=== PATIENT | male | born 1975 | race Caucasian/White ===

== ENCOUNTER 2023-01-07 07:00 | Outpatient (NON) | payer OTHER, SELFPAY | END 2023-01-07 07:01 | disposition home or self-care (01) | LOC: ANHLAB 01-09 12:24 | PROVIDERS: PCP Internal Medicine; Visit Provider Nurse Practitioner | DX: D48.5 Neoplasm of uncertain behavior of skin (principal) | CPT/HCPCS: 88305 ==

== ENCOUNTER 2023-01-30 00:40 | Day surgery (SDC) | payer OTHER, SELFPAY ==
[2023-01-24 15:42] VITALS: BMI 26.4
--- NOTE | 2023-01-28 09:15 | SUR.PREOP ---
Patient called regarding upcoming procedure. Message left on pt's voicemail regarding preop instructions, appointment times, and procedure prep.
--- NOTE | 2023-01-29 13:19 | PM.HPGS ---
History of Present Illness History of Present Illness Consent: Risks, benefits, and alternatives have been discussed and questions answered. Patient agrees to proceed with procedure. Chief complaint: GERD Narrative: Santi Hernandez is a 48 year old male who has had difficulty swallowing lately. He was placed on pantoprazole by his primary care provider.He actually has been doing better on pantoprazole. His symptoms are mostly with solid food. Review of Systems Review of Systems: All systems reviewed & are unremarkable except as noted in HPI and below PMFSH Social History Social History Smoking status: Never smoker Alcohol intake: current Substance use: never Substance use type: does not use Living arrangements: with family Spiritual care concerns: No Meds Home Medications and Allergies Home Medications Medication Instructions Recorded Confirmed Type pantoprazole 40 mg tablet,delayed 40 mg PO DAILY 01/24/23 01/30/23 History release sildenafil 50 mg tablet 50 mg PO PRN PRN Sexual Activity 01/24/23 01/30/23 History Allergies Allergy/AdvReac Type Severity Reaction Status Date / Time No Known Allergies Allergy Verified 01/30/23 07:04 Exam Const: General: alert Orientation/consciousness: patient oriented x3 Resp: Auscultation: clear to auscultation bilaterally Cardio: Rhythm: regular rhythm GI: GI Palp: Yes Soft to palpation and No Tenderness to palpation present (GI) Neuro: General: patient oriented x3 Assessment and Plan Assessment and plan (1) Dysphagia: Code(s): R13.10 - Dysphagia, unspecified Status: Acute Assessment and Plan: EGD with possible biopsy or dilatation or cautery.
[2023-01-30 07:06] VITALS: BP 107/67; PULSE 67; RESP 16; TEMP 35.8; O2SAT 100
[2023-01-30] MEDS: LACTATED RINGERS 1,000 ML 150 ML IV CONT (07:18)
--- NOTE | 2023-01-30 07:45 | P.PNAN_ITS ---
Anes - Initial Pre Proc Eval Procedure: Operation Date: 01/30/23 08:00 Proposed Procedures p Esophagogastroduodenoscopy - Brody Adorno MD Date/Time: 01/30/23 07:45 Surgeon: Brody Adorno MD Pre Op Diagnosis: GERD Patient Data Age: 48 Gender: M Height: 1.83 m Weight: 85.1 kg Last Vital Signs Temp 96.4 F L 01/30/23 07:06 Pulse 67 01/30/23 07:06 Resp 16 01/30/23 07:06 BP 107/67 01/30/23 07:06 Pulse Ox 100 01/30/23 07:06 O2 Del Method Room Air 01/30/23 07:06 Allergies Allergy/AdvReac Type Severity Reaction Status Date / Time No Known Allergies Allergy Verified 01/30/23 07:04 Home Medications Medication Instructions Recorded Confirmed Type pantoprazole 40 mg tablet,delayed 40 mg PO DAILY 01/24/23 01/30/23 History release sildenafil 50 mg tablet 50 mg PO PRN PRN Sexual Activity 01/24/23 01/30/23 History Patient hx anesthesia problems: none Family hx anesthesia problems: none Results Review: All pre-operative results and documents have been reviewed as part of the pre- operative evaluation. [facility], [facility] Social History Social History Smoking status: Never smoker Alcohol intake: current Substance use: never Substance use type: does not use Living arrangements: with family Spiritual care concerns: No Anes - Eval Final PreProcedure Day of Procedure 01/30/23 07:45 Patient weight: normal Heart: regular rate and rhythm Lungs: clear to auscultation Neurological: alert and oriented Last oral intake: >/= 8 hours Emergent: no Anesthetic plan: proceed Results Review: All pre-operative results and documents have been reviewed as part of the pre- operative evaluation. Informed Consent: The patient's anesthetic plan and its attendant risks and benefits were discussed with the patient/family/POA. Questions were solicited and answers provided to the satisfaction of the patient/family/POA.
[2023-01-30 08:01] VITALS: BP 97/66; PULSE 70; RESP 16; O2SAT 98
[2023-01-30 08:11] VITALS: BP 102/73; PULSE 76; RESP 16; O2SAT 97
[2023-01-30 08:21] VITALS: BP 115/82; PULSE 66; RESP 15; O2SAT 99
== END 2023-01-30 08:39 | disposition home or self-care (01) ==
PROVIDERS: PCP Internal Medicine; Visit Provider Internal Medicine Gastroenterology
PROC: 0DJ08ZZ Inspection of Upper Intestinal Tract, Via Natural or Artificial Opening Endoscopic (ICD-10-PCS; CPT 43235; principal; 2023-01-30 08:00)
DX: K22.2 Esophageal obstruction (principal); K44.9 Diaphragmatic hernia without obstruction or gangrene; K21.00 Gastro-esophageal reflux disease with esophagitis, without bleeding
CPT/HCPCS: 43249; 88305; C1726; J2704; J7120

== ENCOUNTER 2025-01-07 01:07 | Day surgery (SDC) | payer OTHER, SELFPAY ==
--- OUTSIDE RECORDS SUMMARY | 2022-02-27 06:37 | XMS_ITS | Continuity of Care Document ---
Author Organization [facility] Address [address] [place] [address] Phone Care Team Providers Care Stereoptic Projection Topographer Name Role Phone Agustin RÍOS MD, Kwame Unavailable Unavailable Advance Directives Directive Yes / No Effective Date File Name No Information Encounters Encounter Description Practice Location Reason(s) For Visit Diagnoses Date Provider Providers Copied on Encounter Orthopedic [employer] [facility], [address], [id number], [place] tel:[phone] [facility] No Information 3 Agustin Puente. [address] [facility], [facility] [address], [place], [place], [id number] , [place]. tel: [phone] Family History Family Member Type Diagnosis Age At Onset No Information Payers Payer name Insurance type Covered democrat ID Authoriza tion(s) No Information Social History Type Description Quantity Date Captured Comments Sex Male Smoking Status No Information Chief Complaint And Reason For Visit No Information Reason For Referral Reason For Referral No Information History Of Present Illness Encounter Date Complaint History Of Prese nt Illness No Information Functional Status Date Functional Assessmen t No Information Instructions Date Instruction Additional Infor mation No Information Assessments Type Assessment Date No Information Patient Care Teams Name Effective Dates (start - stop) Status Members No Information
--- OUTSIDE RECORDS SUMMARY | 2022-02-27 06:37 | XMS_ITS | Continuity of Care Document ---
Author Organization [facility] Address [address] [place] [address] Phone Care Team Providers Care Claim Manager Name Role Phone Agustin RÍOS MD, Kwame Unavailable Unavailable Advance Directives Directive Yes / No Effective Date File Name No Information Encounters Encounter Description Practice Location Reason(s) For Visit Diagnoses Date Provider Providers Copied on Encounter [facility], [address], [id number], [place] tel:[phone] [facility] No Information 3 Agustin Puente. [address] [facility], [facility] [address], [place], [place], [id number] , [place]. tel: [phone] Family History Family Member Type Diagnosis Age At Onset No Information Payers Payer name Insurance type Covered republican ID Authoriza tion(s) No Information Social History [...]
--- OUTSIDE RECORDS SUMMARY | 2022-02-27 06:37 | XMS_ITS | Continuity of Care Document ---
Author Organization [facility] Address [address] [place] [address] Phone Care Team Providers Care Curator Natural History Museum Name Role Phone Agustin RÍOS MD, Kwame Unavailable Unavailable Advance Directives Directive Yes / No Effective Date File Name No Information Encounters Encounter Description Practice Location Reason(s) For Visit Diagnoses Date Provider Providers Copied on Encounter [facility]opedic [facility], [address], [id number], [place] tel:[phone] [facility] No Information 3 Agustin Puente. [address] [facility], [facility] 100, [place], [place], [id number] , [place]. tel: [phone] Family History Family Member Type Diagnosis Age At Onset No Information Payers Payer name Insurance type Covered alliance party ID Authoriza tion(s) No Information Social History [...]
--- OUTSIDE RECORDS SUMMARY | 2022-02-27 06:37 | XMS_ITS | Continuity of Care Document ---
Author Organization [facility] Address [address] [place] [address] Phone Care Team Providers Care Applications Engineering Manager Name Role Phone Agustin RÍOS MD, Kwame Unavailable Unavailable Advance Directives Directive Yes / No Effective Date File Name No Information Encounters Encounter Description Practice Location Reason(s) For Visit Diagnoses Date Provider Providers Copied on Encounter [facility] [employer] [facility], [address], [id number], [place] tel:[phone] [facility] No Information 3 Agustin Puente. [address] [facility], [facility] 100, [place], [place], [id number] , [place]. tel: [phone] Family History Family Member Type Diagnosis Age At Onset No Information Payers Payer name Insurance type Covered constitution party ID Authoriza tion(s) No Information Social [...]
--- OUTSIDE RECORDS SUMMARY | 2022-02-27 06:37 | XMS_ITS | Continuity of Care Document ---
Author Organization [facility] Address [address] [facility] [address] [place] [address] Phone Care Team Providers Care Robotics Application Engineer Name Role Phone Agustin RÍOS MD, Kwame Unavailable Unavailable Advance Directives Directive Yes / No Effective Date File Name No Information Encounters Encounter Description Practice Location Reason(s) For Visit Diagnoses Date Provider Providers Copied on Encounter [facility]opedic [employer] [facility], [address], [id number], [place] tel:[phone] [facility] No Information [address] [facility], [facility] 100, [place], [place], [id number] , [place]. tel: [phone] Family History Family Member Type Diagnosis Age [...]
--- OUTSIDE RECORDS SUMMARY | 2022-02-27 06:37 | XMS_ITS | Continuity of Care Document ---
Author Organization [facility] Address [address] [facility] [address] [address] [place] [address] Phone Care Team Providers Care Powerhouse Electrician Name Role Phone Agustin RÍOS MD, Kwame Unavailable Unavailable Advance Directives Directive Yes / No Effective Date File Name No Information Encounters Encounter Description Practice Location Reason(s) For Visit Diagnoses Date Provider Providers Copied on Encounter Orthopedic [employer] [facility], [address], [id number], [place] tel:[phone] [facility] No Information 3 Agustin Puente. [address] [facility], [facility] 100, [place], [place], [id number] , [place]. tel: [phone] Family History Family Member Type Diagnosis Age [...]
--- OUTSIDE RECORDS SUMMARY | 2022-02-27 06:37 | XMS_ITS | Continuity of Care Document ---
Author Organization [facility] Address [address] [facility] [address] [place] [address] Phone Care Team Providers Care Supervising Bailiff Name Role Phone Agustin RÍOS MD, Kwame Unavailable Unavailable Advance Directives Directive Yes / No Effective Date File Name No Information Encounters Encounter Description Practice Location Reason(s) For Visit Diagnoses Date Provider Providers Copied on Encounter [facility], [address], [id number], [place] tel:[phone] [facility] No Information 3 Agustin Puente. [address] [facility], [facility] 100, [place], [place], [id number] , [place]. tel: [phone] Family History Family Member Type Diagnosis Age [...]
--- OUTSIDE RECORDS SUMMARY | 2022-02-27 06:37 | XMS_ITS | Continuity of Care Document ---
Author Organization [facility] Address [address] [facility] [address] [facility] [address] [place] [address] Phone Care Team Providers Care Booster Pump Oiler Name Role Phone Agustin RÍOS MD, Kwame Unavailable Unavailable Advance Directives Directive Yes / No Effective Date File Name No Information Encounters Encounter Description Practice Location Reason(s) For Visit Diagnoses Date Provider Providers Copied on Encounter Orthopedic [email or web address] [facility], [address], [id number], [place] tel:[phone] [facility] No Information 3 Agustin Puente. [address] [facility], [facility] 100, [place], [place], [id number] , [place]. tel: [phone] Family History Family Member Type Diagnosis Age [...]
--- OUTSIDE RECORDS SUMMARY | 2022-02-27 06:37 | XMS_ITS | Continuity of Care Document ---
Author Organization [facility] Address [address] [facility] [address] [place] [address] Phone Care Team Providers Care Dot Net Developer Name Role Phone Agustin RÍOS MD, Kwame Unavailable Unavailable Advance Directives Directive Yes / No Effective Date File Name No Information Encounters Encounter Description Practice Location Reason(s) For Visit Diagnoses Date Provider Providers Copied on Encounter Orthopedic [employer] [facility], [address], [id number], [place] tel:[phone] [facility] No Information [address] [facility], [facility] 100, [place], [place], [id number] , [place]. tel: [phone] Family History Family Member Type Diagnosis Age [...]
--- OUTSIDE RECORDS SUMMARY | 2022-02-27 06:37 | XMS_ITS | Continuity of Care Document ---
Author Organization [facility] Address [address] [facility] [address] [place] [address] Phone Care Team Providers Care Market Manager Name Role Phone Agustin RÍOS MD, Kwame Unavailable Unavailable Advance Directives Directive Yes / No Effective Date File Name No Information Encounters Encounter Description Practice Location Reason(s) For Visit Diagnoses Date Provider Providers Copied on Encounter Orthopedic [employer] [facility], [address], [id number], [place] tel:[phone] [facility] No Information 3 Agustin Puente. [address] [facility], [facility] 100, [place], [place], [id number] , [place]. tel: [phone] Family History Family Member Type Diagnosis Age At Onset No Information Payers Payer name Insurance type Covered libertarian ID Authoriza tion(s) No Information Social History [...]
--- OUTSIDE RECORDS SUMMARY | 2022-02-27 06:37 | XMS_ITS | Continuity of Care Document ---
Author Organization [facility] Address [address] [facility] [address] [place] [address] Phone Care Team Providers Care Water Supply Technician Name Role Phone Agustin RÍOS MD, Kwame Unavailable Unavailable Advance Directives Directive Yes / No Effective Date File Name No Information Encounters Encounter Description Practice Location Reason(s) For Visit Diagnoses Date Provider Providers Copied on Encounter Orthopedic [employer] [facility], [address], [id number], [place] tel:[phone] [facility] No Information 3 Agustin Puente. [address] [facility], [facility] 100, [place], [place], [id number] , [place]. tel: [phone] Family History Family Member Type Diagnosis Age [...]
--- OUTSIDE RECORDS SUMMARY | 2022-02-27 06:37 | XMS_ITS | Continuity of Care Document ---
Author Organization [facility] Address [address] [facility] [address] [place] [address] Phone Care Team Providers Care Cartridge Assembling Machine Adjuster Name Role Phone Agustin RÍOS MD, Kwame Unavailable Unavailable Advance Directives Directive Yes / No Effective Date File Name No Information Encounters Encounter Description Practice Location Reason(s) For Visit Diagnoses Date Provider Providers Copied on Encounter Orthopedic [employer] [facility], [address], [id number], [place] tel:[phone] [facility] No Information 3 Agustin Puente. [address] [facility], [facility] 100, [place], [place], [id number] , [place]. tel: [phone] Family History Family Member Type Diagnosis Age [...]
--- OUTSIDE RECORDS SUMMARY | 2022-02-27 06:37 | XMS_ITS | Continuity of Care Document ---
Author Organization [facility] Address [address] [facility] [address] [place] [address] Phone Care Team Providers Care Employee Benefits Attorney Name Role Phone Agustin RÍOS MD, Kwame Unavailable Unavailable Advance Directives Directive Yes / No Effective Date File Name No Information Encounters Encounter Description Practice Location Reason(s) For Visit Diagnoses Date Provider Providers Copied on Encounter Orthopedic [facility], [address], [id number], [place] tel:[phone] [facility] No Information 3 Agustin Puente. [address] [facility], [facility] 100, [place], [place], [id number] , [place]. tel: [phone] Family History Family Member Type Diagnosis Age [...]
[2024-12-31 13:23] VITALS: BMI 25.0
--- OUTSIDE RECORDS SUMMARY | 2025-01-07 02:06 | XMS_ITS | Data Portability ---
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 He reports minimal changes compared to his previous visit. He is still having significant mechanical symptoms on a daily basis of catching locking. He rates his pain as from a 2 up to 8/10. He did get an MRI and he is here to review that. MRI of the knee was reviewed, demonstrating a horizontal tear of the inferior surface of the medial meniscus posterior body He has tenderness palpation over the medial joint line. 1+ effusion. Range of motion 0-140, positive Néstor's, stable ligaments. Given his persistent mechanical symptoms and the MRI findings of a meniscal tear, I would recommend surgery for knee arthroscopy partial medial meniscectomy. Risks, benefits, and alternatives to surgery were discussed with the patient. Risks include but are not limited to pain, stiffness, infection, bleeding, blood clot, injury to other structures including nerves or blood vessels, need for future surgery, and anesthesia risks. We discussed the goal of surgery is to improve symptoms but there is no guarantee of improvement and it is possible the patient's condition is worse after surgery. Patient agreed and would like to proceed. Not available 03/02/2023 22:57:12 05/22/2023 05/22/2023 48-year-old male presents for follow-up of his right knee. He is meniscal symptoms that have failed conservative management. We are waiting for insurance approval to proceed with surgery. Reports his knee is hurting more, rated as 9 to 10/10. He has popping and pain with activities. He has remained full duty at work. He feels like this is making his problems worse. He has tenderness palpation over the medial joint line. 1+ effusion. Range of motion 0-140, positive Néstor's, stable ligaments. we will continue seeking approval for his surgery, given that he has mechanical meniscal symptoms that have failed conservative management. He reports that he has been working full duty, but his duties including climbing and kneeling, make his knee pain worse and also cause him significant mechanical symptoms. As such, we will update his work status to restrict him from climbing and kneeling. We will resubmit the authorization for his surgery. He is in agreement with the plan. Not available 05/22/2023 22:06:43 06/19/2023 06/19/2023 48-year-old male presents for follow-up of his right knee. He is meniscal symptoms that have failed conservative management. We were waiting for insurance approval to proceed with surgery. Reports his knee is hurting more, rated as 9 to 10/10. He has popping and pain with activities. He has been off work due to them not being able to accommodate his restrictions. He has tenderness palpation over the medial joint line. 1+ effusion. Range of motion 0-140, positive Néstor's, stable ligaments. He is scheduled for surgery later this month. We answered all questions he had about the surgery and post-op. Surgery details and risks were discussed with him at a prior appointment with Dr. Carroll. His work restrictions will stay the same until we see him back 2 weeks post-op for his first check up. He is in agreement with this plan. [email or web address] Not available 06/19/2023 09:41:01 07/24/2023 07/24/2023 48-year-old male presents for follow-up of his right knee status post arthroscopy partial medial meniscectomy on 07/09/2023. He reports feeling better, still having some stiffness, currently rates his pain as 7 to 8/10. Incisions are clean dry intact. Sutures removed and redressed with Steri-Strips. He has some soreness over the lateral joint line. Range of motion 0-130 At this point he is progressing as expected. He should continue to protect the incisions for another week or 2. He does not feel ready to return to work duties, so we will restrict him to light duty with no climbing lifting pushing or pulling. We will see him back in 2 weeks, anticipate at that time he would be ready to go. We discussed that is good that he no longer has the catching symptoms that he was having before, but the continued pain may be from the pre-existing wear and tear, especially the pain in the lateral part of the knee, as we did surgery on the medial meniscus. Not available 07/24/2023 11:05:24 08/07/2023 08/07/2023 48-year-old male presents for follow-up of his right knee status post arthroscopy and partial medial meniscectomy on 07/09/2023. He reports feeling good, overall no problems except he still has pain with kneeling. He has not had anymore catching or locking. Currently rates his pain as 3 to 5/10. Incisions well healed. He has some tenderness over the anterior knee over the patellar tendon. Range of motion 0-140, negative Néstor's, stable ligaments. At this point he has progressed well. With regards to the pain anteriorly, that may be from some scar tissue or some sensitivity around the incision sites. He should continue to desensitize, use a knee pad when kneeling. For his work status we will pace cement activities as tolerated, no kneeling for 2 more weeks, then full release. We also gave him a course of anti-inflammator ies and he should also use topical Voltaren as needed. Follow-up in 4 weeks for recheck if he has any issues.. Not available 08/07/2023 18:13:21 Plan of Treatment Reminders Order Date Submit Date Provider Last Modified By Organization Details Last Modified Time Details Appointments None recorded . Lab None recorded . Referral None recorded . Procedures None recorded . Surgeries None recorded . Imaging None recorded . Medication Orders Mobic 15 mg tablet 024 08/07/19 24 [facility] #[id number], [address] [place], [address], 4 16:53:06 Patient TargetsNo targets recorded. Patient InstructionsNo instructions recorded. Reason for Referral None Reported. Results Created Date Observation Date Name Description Value Unit Range Abnormal Flag Note LastModifiedBy Organization Detail LastModifiedTime 02/09/20 23 02/07/2023 MRI, knee, w/o contr ast No observ ation record ed. [email or web address] [facility] [address] [place], [address], 02/20/2023 13:59:55 05/31/19 24 MRI, knee, w/o contr ast No observ ation record ed. [email or web address] Not Available 05/19 11:35:37 Result Notes None recorded. Problems Name Problem SNOMED Code Status Onset Date Resolution Date Notes Provider Name and Address Organization Details Recorded Time Pain of right knee joint 4192590596431 00 Active 2022 Not Available [facility] 3 07:29:36 Low back pain 268453681 Active 2022 Not Available [facility] 3 07:29:36 Onychomyco sis of toenails 440917262 Active 2022 Not Available [facility] 3 07:29:36 Gastroesop hageal reflux disease 175812863 Active 2022 Not Available [facility] 3 07:29:35 Erectile dysfunctio n 305430787 Active 2022 Not Available [facility] 3 07:29:36 Tear of medial meniscus of knee 984225518 Active 2023 Jesus Carroll MD [address] [facility], [facility] [address], [place], [address] , [facility] 4 22:57:44 Problem Notes None recorded. Procedures Surgical History Date Name Laterality Status Provider Name and Address Organization Details Recorded Time 4 Knee Surgery completed DANE Vergara [facility] 07/30/2023 15:30:23 Imaging Results None recorded. Procedure Notes None recorded. Medical Equipment None Reported. Allergies No known drug allergies Medications Name Sig Start Date Stop Date Status Note LastModified by Organization Details LastModified Time sildenafil 50 mg tablet take 1 tablet 30mins before intercour se active Not Available Not Available No t Available hydrocodone 5 mg-acetamin ophen 325 mg tablet TAKE 1 TABLET BY MOUTH EVERY 6 HOURS active Not Available Not Available No t Available meloxicam 15 mg tablet TAKE 1 TABLET BY MOUTH EVERY DAY active Not Available Not Available No t Available terbinafine HCl 250 mg tablet Take 1 tablet every day by oral route. active Not Available Not Available No t Available pantoprazol e 40 mg tablet,diana yed release Take 1 tablet every day by oral route. active Not Available Not Available No t Available naproxen 500 mg tablet TAKE 1 TABLET (ORAL) EVERY 12 HOURS ( NEEDED FOR PAIN) FOR 5 DAYS 06/08 completed Not Available Not Available Not Available [employer] COVID-19 Ag Self Test kit TAKE DIRECTED IN PACKAGE 06/08 completed Not Available Not Available Not Available Vitals Date Recorded Body height Body mass index (BMI) Body weight Provider Name and Address Organization Details Last Updated DateTime 02/27/2023 182.88 cm 25.8 kg/m2 33187.55 g Leonora Forde Nancy [employer] [facility] 02/27/2023 15:16:09 Date Recorded Body height Body mass index (BMI) Body weight Pain severity - 0-10 verbal numeric rating [Score] - Reported Provider Name and Address Organization Details Last Updated DateTime 05/22/2023 182.88 cm 25.8 kg/m2 40565.55 g 9 DANE Vergara [employer] [facility] 05/22/2023 15:11:55 Date Recorded Body height Body mass index (BMI) Body weight Provider Name and Address Organization Details Last Updated DateTime 06/19/2023 182.88 cm 25.8 kg/m2 73878.55 g Nelli Powers CNA [facility] [facility] 06/19/2023 09:01:00 Date Recorded Body height Body mass index (BMI) Body weight Pain severity - 0-10 verbal numeric rating [Score] - Reported Provider Name and Address Organization Details Last Updated DateTime 07/24/2023 182.88 cm 25.8 kg/m2 74011.55 g 8 Leonora Forde Nancy [place] [facility] 07/24/2023 09:51:03 Date Recorded Body height Body mass index (BMI) Body weight Pain severity - 0-10 verbal numeric rating [Score] - Reported Provider Name and Address Organization Details Last Updated DateTime 08/07/2023 182.88 cm 25.8 kg/m2 96786.55 g 5 Leonora Eula STEFANYNancy [facility] [employer] [facility] 08/07/2023 11:03:51 Social History Question Answer Notes LastModified by Organizat ion Details LastModified Time Tobacco Smoking Status Never Smoker Magno Alas, DANE alexsander, [facility] [employer] [facility] 12/06/2022 15:27:12 Do You Have An Advance Directive? No [email or web address] Information not available 06/08/2022 Is Blood Transfusion Acceptable In An Emergency? Yes Information not available 12/06/2022 What Is Your Level Of Caffeine Consumption? Moderate [email or web address] Information not available 06/08/2022 In The 14 Days Before Symptom Onset, Have You Had Close Contact With A Laboratory-confir med COVID-19 While That Case Was Ill? No Information not available 12/06/2022 In The 14 Days Before Symptom Onset, Have You Had Close Contact With A Person Who Is Under Investigation For COVID-19 While That Person Was Ill? No Information not available 12/06/2022 What Type Of Diet Are You Following? REGULAR Information not available 06/08/2022 What Is The Highest Grade Or Level Of School You Have Completed Or The Highest Degree You Have Received? [id number] Information not available 12/06/2022 Have There Been Any Changes To Your Family Or Social Situation? No Information no t available 12/06/2022 What Is The Fluoride Status Of Your Home? Unknown Information not available 12/06/2022 Do You Use Insect Repellent Routinely? No Information not available 12/06/2022 [facility] Information not available 12/06/2022 Do You Have A Medical Power Of Pack Train Driver? No Information not available 12/06/2022 What Was The Date Of Your Most Recent Tobacco Screening? 01/17/2023 [email or web address] Information not available 01/17/2023 Do You Have Any Pets? No Information not available 12/06/2022 What Is Your Relationship Status? [email or web address] Information not available 06/08/2022 Do You Use Your Seat Belt Or Car Seat Routinely? Yes Information not available 12/06/2022 Do You Have Smoke And Carbon Monoxide Detectors In Your Home? Yes Information not available 12/06/2022 Are You Passively Exposed To Smoke? No Information no t available 12/06/2022 Are There Any Smokers In Your House? No Information not available 12/06/2022 Do You Use Sunscreen Routinely? No Information not available 12/06/2022 Have You Recently Traveled Abroad? No Information not available 12/06/2022 Do You Have Any Dietary Restrictions? No Information not available 12/06/2022 Sex: Male Functional Status Question Answer Note LastModified by Organizat ion Details LastModified Time Do you use any illicit or recreational drugs? No Information not available 12/06/2022 Do you or have you ever used any other forms of tobacco or nicotine? No Information not available 12/06/2022 What is your level of alcohol consumption? None [email or web address] Information not available 11/14/2022 Are you currently employed? Yes Information not available 12/06/2022 What is your occupation? [employer] Information not available 12/06/2022 What is your exercise level? Occasional [email or web address] Information not available 06/08/2022 Mental Status Question Answer Note LastModified by Organization D etails LastModified Time Do you feel stressed (tense, restless, nervous, or anxious, or unable to sleep at night)? [id number] Information not available 12/06/2022 Family History Relationship Description Onset Age of this Age Resolved Age Notes LastModified by Organization Details LastModified Time Father No current problems or disability [email or web address] Not available 12:38:51 Father Family history of malignant neoplasm 80 80 [email or web address] Not available 11/18 15:32:07 Mother No current problems or disability [email or web address] Not available 12:38:51 Mother Family history of malignant neoplasm [email or web address] Not available 10/20 14:49:15 Mother Family history of stroke [email or web address] Not available 10/20 14:49:28 Medical History Condition Response HAVE YOU BEEN HOSPITALIZED OR SEEN IN [facility] ER IN THE PAST YEAR ? N Past Encounters Encounter ID Performer Location Encounter Start Date Encounter Closed Date Diagnosis/Indication Diagnosis SNOMED-CT Code Diagnosis ICD10 Code Diagnosis IMO Codes Diagnosis Note [id number] Lucas Whitlock MD [facility] Internal Med [facility] [address] [facility] [address] [place] [address] 06/08/2022 12:28:16 06/08/2022 13:51:50 Adult health examination 122868156 Z00.00 Screening for malignant neoplasm of prostate 243077002 Z12.5 Screening for malignant neoplasm of colon 921231862 Z12.11 Pain of ri ght knee joint 2396587304 25508 M25.957 [id number] Jesus Carroll MD [facility] [address] [place] [address] 11/14/2022 14:30:17 11/14/2022 15:45:32 Pain of right knee joint 2373185917 39583 M25.301 [id number] Lucas Whitlock MD [facility] Internal Med [facility] [address] [place] [address] [place] [address] 12/06/2022 15:26:00 12/06/2022 15:46:21 Low back pain 669323053 M54.50 Onychomyco sis of toenails 539330906 B35.1 Gastroesop hageal reflux disease 438821808 K21.9 [id number] Jesus Carroll MD [facility] [address] [place] [address] 12/12/2022 14:28:02 12/12/2022 15:22:44 Pain of right knee joint 0920645074 41477 M25.243 [id number] Lucas Whitlock MD [facility] Internal Med [facility] [address] [facility] [place] [address] 01/17/2023 14:55:01 01/17/2023 16:09:55 Gastroesophageal reflux disease 630605680 K21.9 Erectile dysfunction 860 431670 F52.21 Low back pain 871594941 M54.50 Onychomyco sis of toenails 486617462 B35.1 [id number] Jesus Carroll MD [facility] [address] [place] [address] 01/22/2023 11:42:11 01/22/2023 12:06:06 Pain of right knee joint 2059951857 92615 M25.205 [id number] Jesus Carroll MD [facility] [address] [place] [address] 02/27/2023 15:14:50 02/27/2023 16:36:38 Pain of right knee joint 9496014532 70029 M25.561 Tear of me dial meniscus of knee 462292599 S83.241A [id number] Jesus Carroll MD [facility] [address] [place] [address] 05/22/2023 15:06:12 05/22/2023 15:44:07 Pain of right knee joint 9990975959 97019 M25.625 [id number] Jesus Carroll MD [facility] [address] [place] [address] 06/19/2023 08:59:17 06/19/2023 10:07:00 Pain of right knee joint 3797336790 25651 M25.850 [id number] Jesus Carroll MD [facility] [address] [place] [address] 07/24/2023 09:49:35 07/24/2023 10:45:10 Pain of right knee joint 9285874447 24287 M25.634 [id number] Jesus Carroll MD [facility] [address] [place] [address] 08/07/2023 11:01:36 08/07/2023 11:22:23 Pain of right knee joint 0839257044 97846 M25.561 Health Concerns Section Related Observation LastModified by Organization Detai ls LastModified Time None Recorded Concern Status LastModified by Organization Details LastModified Time None Recorded Advance Directives Directive N: Payers Insurance Date Sequence Insurance Name Policy Number Policy Vasquez Covered Member ID Vasquez Member ID Guarantor Name 07/24/2023 1 [employer] - OPEN ACCESS Santi Hernandez [id number] Santi Hernandez 07/24/2023 NELLY Hernandez
--- OUTSIDE RECORDS SUMMARY | 2025-01-07 02:07 | XMS_ITS | Clinical Summary ---
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 Gender Identity Not on file Sexual Orientation Not on file Plan of Treatment Health Maintenance Due Date Last Done Comments Hepatitis C Virus (HCV) Screening 1974 TdaP Immunization 1974 Hepatitis B Immunization (1 of 3 - 19+ 3-dose series) 1993 Cologuard 2019 Colonoscopy 2019 Colorectal Cancer Screening 2019 Immunochemical Fecal Occult Blood 2019 Pneumococcal Immunization (5 0+ years) (1 of 1 - PCV) 01/26/2024 Zoster Immunization (1 of 2) 01/26/2024 Influenza Immunization (#1) 2024 SARS-COV-2 Immunization ( season) 2024 Respiratory Syncytial Virus (RSV) Immunization (Adult) (1 - 1-dose 75+ series) 2049 Human Papillomavirus (HPV) Immunization Aged Out No longer eligible b ased on patient's age to complete this topic Meningococcal Immunization (ACWY) Aged Out No longer eligible based on patient's age to complete this topic Rotavirus Immunization Aged Out No lo nger eligible based on patient's age to complete this topic
[2025-01-07 10:10] VITALS: BP 121/74; PULSE 89; RESP 18; TEMP 36.9; O2SAT 99
[2025-01-07] MEDS: LACTATED RINGERS 1,000 ML 150 ML IV CONT (10:21)
--- NOTE | 2025-01-07 10:38 | PM.HPGS ---
History of Present Illness History of Present Illness Consent: Risks, benefits, and alternatives have been discussed and questions answered. Patient agrees to proceed with procedure. Chief complaint: Hemorrhage of anus and rectum Narrative: Santi Hernandez is a 49 year old male with dysphagia, had EGD 2022 with balloon dilation up to 20 mm, also here for first colonoscopy. Review of Systems Review of Systems: All systems reviewed & are unremarkable except as noted in HPI and below PMFSH Past Medical History Medical History (Updated 01/07/25 @ 10:38 by Yosi Hebert MD) Colon cancer screening Social History Social History Smoking status: Never smoker Alcohol intake: never Substance use: never Substance use type: does not use Living arrangements: alone Spiritual care concerns: No Meds Home Medications and Allergies Home Medications ?Medication ?Instructions ?Recorded ?Confirmed ?Type pantoprazole 40 mg tablet,delayed 40 mg PO DAILY 01/24/23 01/07/25 History release sildenafil 50 mg tablet 50 mg PO PRN PRN Sexual Activity 01/24/23 12/31/24 History Allergies Allergy/AdvReac Type Severity Reaction Status Date / Time No Known Allergies Allergy Verified 01/07/25 10:09 Vital Signs Vital Signs - 24 hr 01/07/25 10:10 Temperature 98.4 F Pulse Rate 89 Respiratory Rate 18 Blood Pressure 121/74 Pulse Oximetry 99 Oxygen Delivery Room Air Exam Const: General: comfortable and no acute distress HENMT: Face/Nose/Sinus: Normal nares present Eyes: General: appearance normal, both eyes and all related structures Neck: Neck: no JVD Resp: Auscultation: clear to auscultation bilaterally Cardio: Rate: regular rate Rhythm: regular rhythm GI: Inspection: non-distended GI Palp: Yes Soft to palpation Skin: General skin exam: normal color Extrem: General: normal to inspection Psych: Mental Status: mental status grossly normal Assessment and Plan Assessment and plan (1) Dysphagia: Code(s): R13.10 - Dysphagia, unspecified Status: Acute Assessment and Plan: egd (2) Colon cancer screening: Code(s): Z12.11 - Encounter for screening for malignant neoplasm of colon Status: Acute Assessment and Plan: colonoscopy
--- NOTE | 2025-01-07 10:40 | P.PNAN_ITS ---
Anes - Initial Pre Proc Eval Procedure: Operation Date: 01/07/25 11:30 Proposed Procedures p EGD & Diagnostic Colonoscopy - Yosi Hebert MD Date/Time: 01/07/25 10:40 Surgeon: Yosi Hebert MD Pre Op Diagnosis: Hemorrhage of anus and rectum Patient Data Age: 49 Gender: M Height: 1.85 m Weight: 82.4 kg Last Vital Signs Temp 36.9 C 01/07/25 10:10 Pulse 89 01/07/25 10:10 Resp 18 01/07/25 10:10 BP 121/74 01/07/25 10:10 Pulse Ox 99 01/07/25 10:10 O2 Del Method Room Air 01/07/25 10:10 Allergies Allergy/AdvReac Type Severity Reaction Status Date / Time No Known Allergies Allergy Verified 01/07/25 10:09 Home Medications ?Medication ?Instructions ?Recorded ?Confirmed ?Type pantoprazole 40 mg tablet,delayed 40 mg PO DAILY 01/2401/07/25 History release sildenafil 50 mg tablet 50 mg PO PRN PRN Sexual Acti vity 01/24/23 12/31/24 History Patient hx anesthesia problems: none Family hx anesthesia problems: none Results Review: All pre-operative results and documents have been reviewed as part of the pre- operative evaluation. [facility] Past Medical History Medical History Colon cancer screening Social History Social History Smoking status: Never smoker Alcohol intake: never Substance use: never Substance use type: does not use Living arrangements: alone Spiritual care concerns: No Anes - Eval Final PreProcedure Day of Procedure 01/07/25 10:40 Patient weight: normal Heart: regular rate and rhythm Lungs: clear to auscultation Airway: Mallampati scale class II Neurological: alert and oriented Last oral intake: >/= 8 hours ASA classification: II Emergent: no Anesthetic plan: proceed Anesthesia type and monitoring: general GIVS and standard monitoring Results Review: All pre-operative results and documents have been reviewed as part of the pre- operative evaluation. Informed Consent: The patient's anesthetic plan and its attendant risks and benefits were discussed with the patient/family/POA. Questions were solicited and answers provided to the satisfaction of the patient/family/POA.
--- NOTE | 2025-01-07 10:57 | S_PTH ---
PATIENT: Santi Hernandez LOC: [facility]#:[id number] AGE/SX: 49/M ROOM: RE01/07/[address]: Yosi Hebert MD : 1975 BED: DIS: 01/07/2025 SPEC #: [id number] RECD: 01/07/25 11:45 STATUS: DOROTEO REHaja #: [id number] ASTER: 01/07/25 10:[address]: Yosi Hebert DEPT: [facility] Surgical RECD BY: Melina Delgado ENTERED: 01/07/25 11:45 SP TYPE: Surgical OTHR DR: Bradley Whitlock, Tissues: A - Esophageal Biopsy Procedures: Hematoxylin and Eosin Stain Gross and Microscopic Level 4
--- NOTE | 2025-01-07 10:58 | SUR.OPER ---
EGD: [id number] COLON: Start 5
[2025-01-07 11:04] VITALS: BP 109/71; PULSE 95; RESP 16; O2SAT 99
[2025-01-07 11:14] VITALS: BP 107/67; PULSE 80; RESP 20; O2SAT 98
[2025-01-07 11:24] VITALS: BP 111/74; PULSE 69; RESP 21; O2SAT 100
== END 2025-01-07 11:30 | disposition home or self-care (01) ==
PROVIDERS: PCP Internal Medicine; Visit Provider Internal Medicine Gastroenterology
PROC: 0DJ08ZZ Inspection of Upper Intestinal Tract, Via Natural or Artificial Opening Endoscopic (ICD-10-PCS; CPT 45378; principal; 2025-01-07 11:30)
DX: Z12.11 Encounter for screening for malignant neoplasm of colon (principal); K64.8 Other hemorrhoids; K21.00 Gastro-esophageal reflux disease with esophagitis, without bleeding; K22.2 Esophageal obstruction
CPT/HCPCS: 43249; 45378; 88305; C1726; J2003; J2704; J7120

== ENCOUNTER 2025-01-26 07:05 | Outpatient (CLI) | payer OTHER, SELFPAY ==
--- OUTSIDE RECORDS SUMMARY | 2025-01-26 07:11 | XMS_ITS | Data Portability ---
Author Organization [place] [facility] [email or web address], Main Office Address [address] [place] [address] Care Team Providers Care Folder Seamer Name Role Phone LUCAS WHITLOCK Primary Care Provider LUCAS WHITLOCK Referring Provider [phone] BONNY MAK Special Services Coordinator [phone] Assessment Encounter Date Assessment Date Assessment LastModified [...] Mobic 15 mg tablet 024 08/07/19 24 [facility] #[id number], [address] [place], [address], 4 16:53:06 Patient TargetsNo targets recorded. Patient InstructionsNo instructions recorded. Reason for Referral None Reported. Results Created Date Observation Date Name Description Value Unit Range Abnormal Flag Note LastModifiedBy Organization Detail LastModifiedTime 02/09/20 23 02/07/2023 MRI, knee, w/o contr ast No observ ation record ed. [email or web address] [facility] [address] [place], [address], 02/20/2023 13:59:55 05/31/19 24 MRI, knee, w/o contr ast No observ ation record ed. [email or web address] Not Available 05/19 11:35:37 Result Notes None recorded. Problems Name Problem SNOMED Code Status Onset Date Resolution Date Notes Provider Name and Address Organization Details Recorded Time Pain of right knee joint 8465131181059 00 Active 2022 Not Available [facility] 3 07:29:36 Low back pain 761037401 Active 2022 Not Available [facility] 3 07:29:36 Onychomyco sis of toenails 351430917 Active 2022 Not Available [facility] 3 07:29:36 Gastroesop hageal reflux disease 130858927 Active 2022 Not Available [facility] 3 07:29:35 Erectile dysfunctio n 264210109 Active 2022 Not Available [facility] 3 07:29:36 Tear of medial meniscus of knee 775729926 Active 2023 Jesus Carroll MD [address] [facility], [facility] [address], [place], [address] , [facility] 4 22:57:44 Problem Notes None recorded. Procedures Surgical History Date Name Laterality Status Provider Name and Address Organization Details Recorded Time 4 Knee Surgery completed DANE Vergara [facility] 07/30/2023 15:30:23 Imaging Results None recorded. Procedure [...] Updated DateTime 02/27/2023 182.88 cm 25.8 kg/m2 77844.55 g Leonora Forde Nancy [employer] [facility] [email or web address] 02/27/2023 15:16:09 Date Recorded Body height Body mass index (BMI) Body weight Pain severity - 0-10 verbal numeric rating [Score] - Reported Provider Name and Address Organization Details Last Updated DateTime 05/22/2023 182.88 cm 25.8 kg/m2 53263.55 g 9 DANE Vergara [employer] [facility] [email or web address] 05/22/2023 15:11:55 Date Recorded Body height Body mass index (BMI) Body weight Provider Name and Address Organization Details Last Updated DateTime 06/19/2023 182.88 cm 25.8 kg/m2 97996.55 g Nelli Powers CNA [employer] [facility] [email or web address] 06/19/2023 09:01:00 Date Recorded Body height Body mass index (BMI) Body weight Pain severity - 0-10 verbal numeric rating [Score] - Reported Provider Name and Address Organization Details Last Updated DateTime 07/24/2023 182.88 cm 25.8 kg/m2 96362.55 g 8 Leonora Forde Nancy [place] [facility] [email or web address] 07/24/2023 09:51:03 Date Recorded Body height Body mass index (BMI) Body weight Pain severity - 0-10 verbal numeric rating [Score] - Reported Provider Name and Address Organization Details Last Updated DateTime 08/07/2023 182.88 cm 25.8 kg/m2 00794.55 g 5 Leonora Eula STEFANYNancy [facility] [employer] [facility] 08/07/2023 11:03:51 Social History Question Answer Notes LastModified by Organizat ion Details LastModified Time Tobacco Smoking Status Never Smoker Magno Alas, DANE [email or web address], [facility] [employer] [facility] 12/06/2022 15:27:12 Do You Have An Advance Directive? No [email or web address] Information not available 06/08/2022 Is Blood Transfusion Acceptable In An Emergency? Yes Information not available 12/06/2022 What Is Your Level Of Caffeine Consumption? Moderate [email or web address] Information not available 06/08/2022 In The 14 [...] Type Of Diet Are You Following? REGULAR [email or web address] Information not available 06/08/2022 What Is The Highest Grade Or Level Of School You Have Completed Or The Highest Degree You Have Received? [id number] Information not available 12/06/2022 Have There Been Any Changes To Your Family Or Social Situation? No Information no t available 12/06/2022 What Is The Fluoride Status Of Your Home? Unknown Information not available 12/06/2022 Do You Use Insect Repellent Routinely? No Information not available 12/06/2022 [facility] not [facility] 12/06/2022 Do You Have A Medical Power Of Transitions Manager Rn? No Information not available 12/06/2022 What Was The Date Of Your Most Recent Tobacco Screening? 01/17/2023 [email or web address] Information not available 01/17/2023 Do You Have Any Pets? No Information not available 12/06/2022 What Is Your Relationship Status? [email or web address] Information not available 06/08/2022 Do You Use [...] 12/06/2022 What is your exercise level? Occasional [email or web address] Information not available 06/08/2022 Mental Status Question Answer Note LastModified by Organization D etails LastModified Time Do you feel stressed (tense, restless, nervous, or anxious, or unable to sleep at night)? [id number] Information not available 12/06/2022 Family History Relationship Description Onset Age of this Age Resolved Age Notes LastModified by Organization Details LastModified Time Father No current problems or disability [email or web address] Not available 12:38:51 Father Family history of malignant neoplasm 80 80 [email or web address] Not available 11/18 15:32:07 Mother No current problems or disability [email or web address] Not available 12:38:51 Mother Family history of malignant neoplasm [email or web address] Not available 10/20 14:49:15 Mother Family history of stroke [email or web address] Not available 10/20 14:49:28 Medical History Condition Response HAVE YOU BEEN HOSPITALIZED OR SEEN IN [facility] ER IN THE PAST YEAR ? N Past Encounters Encounter ID Performer Location Encounter Start Date Encounter Closed Date Diagnosis/Indication Diagnosis SNOMED-CT Code Diagnosis ICD10 Code Diagnosis IMO Codes Diagnosis Note [id number] Lucas Whitlock MD [facility] Internal Med [facility] [address] [facility] [address] [place] [address] 06/08/2022 12:28:16 06/08/2022 13:51:50 Adult health examination 218323558 Z00.00 Screening for malignant neoplasm of prostate 459635966 Z12.5 Screening for malignant neoplasm of colon 789960117 Z12.11 Pain of ri ght knee joint 5581381370 78997 M25.227 [id number] Jesus Carroll MD [facility] [place] [address] [place] [address] 11/14/2022 14:30:17 11/14/2022 15:45:32 Pain of right knee joint 0640087140 13294 M25.118 [id number] Lucas Whitlock MD [facility] Internal Med [facility] [address] [place] [address] [place] [address] 12/06/2022 15:26:00 12/06/2022 15:46:21 Low back pain 086481080 M54.50 Onychomyco sis of toenails 328822723 B35.1 Gastroesop hageal reflux disease 140198679 K21.9 [id number] Jesus Carroll MD [facility] [place] [address] [place] [address] 12/12/2022 14:28:02 12/12/2022 15:22:44 Pain of right knee joint 3814149167 85828 M25.493 [id number] Lucas Whitlock MD [facility] Internal Med [facility] [address] [facility] [place] [address] 01/17/2023 14:55:01 01/17/2023 16:09:55 Gastroesophageal reflux disease 460241910 K21.9 Erectile dysfunction 860 728901 F52.21 Low back pain 135356369 M54.50 Onychomyco sis of toenails 190766103 B35.1 [id number] Jesus Carroll MD [facility] [place] [address] [place] [address] 01/22/2023 11:42:11 01/22/2023 12:06:06 Pain of right knee joint 4618898643 26002 M25.783 [id number] Jesus Carroll MD [facility] [place] [address] [place] [address] 02/27/2023 15:14:50 02/27/2023 16:36:38 Pain of right knee joint 8640867115 91214 M25.561 Tear of me dial meniscus of knee 393350951 S83.241A [id number] Jessu Craroll MD [facility] [place] [address] [place] [address] 05/22/2023 15:06:12 05/22/2023 15:44:07 Pain of right knee joint 9110151249 02702 M25.516 [id number] Jesus Carroll MD [facility] [place] [address] [place] [address] 06/19/2023 08:59:17 06/19/2023 10:07:00 Pain of right knee joint 4204208144 55762 M25.654 [id number] Jesus Carroll MD [facility] [place] [address] [place] [address] 07/24/2023 09:49:35 07/24/2023 10:45:10 Pain of right knee joint 0995494390 72058 M25.953 [id number] Jesus Carroll MD [facility] [place] [address] [place] [address] 08/07/2023 11:01:36 08/07/2023 11:22:23 Pain of right knee joint 7147889649 75885 M25.561 Health Concerns Section Related Observation LastModified by Organization Detai ls LastModified Time None Recorded Concern Status LastModified by Organization Details LastModified Time None Recorded Advance Directives Directive N: Payers Insurance Date Sequence Insurance Name Policy Number Policy Vasquez Covered Member ID Vasquez Member ID Guarantor Name 07/24/2023 1 [employer] - OPEN ACCESS Santi Hernandez [id number] Santi Hernandez 07/24/2023 NELLY Hernandez
--- OUTSIDE RECORDS SUMMARY | 2025-01-26 07:11 | XMS_ITS | Clinical Summary ---
Author Organization [facility] [facility] lin Address [address] [facility] [place] [address] Care Team Providers Care Performance Management Consultant Name Role Phone Pcp, No Primary Care Provider [phone] Social History Tobacco Use Types Packs/Day Years Used Date Smoking Tobacco: Never Assessed Sex and Gender Information Value Date Recorded Sex Assigned at Not on file Legal Sex Male 10:10 AM EST Gender Identity Not on file Sexual Orientation Not on file Plan of Treatment Not on file Medical Devices Not on file Insurance [employer] Care Teams Performance Management Consultant Relationship Specialty Start Date End Date Pcp, Khloe PCP - General Family Medicine 01/04/20
[2025-01-26 07:29] LABS: Hematocrit 42.4 % (40.0-54.0); Hemoglobin 14.3 g/dL (14.0-18.0); Immature Granulocyte Percent A 0.3 % (0.0-0.0); Lymphocytes Absolute Auto 1.96 K/mm3 (1.10-4.50); Mean Corpuscular HGB Conc 33.7 g/dL (32-36); Mean Corpuscular Hemoglobin 31.4 pg (27.0-31.0); Mean Corpuscular Volume 93.2 fL (78.0-102.0); Nucleated Red Blood Cells Absolute Auto 0.00 K/mm3 (0.00-0.00); Nucleated Red Blood Cells Perc 0.0 % (0-0.0); Platelet Count Result 259 K/mm3 (150-420); Red Blood Count 4.55 M/mm3 (4.70-6.10); White Blood Count 6.4 K/mm3 (4.8-10.8)
[2025-01-26 07:51] LABS: Alanine Aminotransferase 34 U/L (6-50); Albumin Level 4.4 g/dL (3.5-5.1); Alkaline Phosphatase 59 U/L (38-126); Anion Gap 9 mmol/L (4-12); Aspartate Amino Transferase 36 U/L (17-59); Bilirubin,Total 0.6 mg/dL (0.2-1.3); Blood Urea Nitrogen 18 mg/dL (9-20); Calcium 9.0 mg/dL (8.4-10.2); Carbon Dioxide 21 mmol/L (22-30); Chloride 111 mmol/L (98-107); Cholesterol 185 mg/dL (0-200); Estimated Glomerular Filt Rate > 60; Glucose 108 mg/dL (65-110); HDL Direct 49 mg/dL; Osmolality Calculated 294 mOsm/kg (285-295); Potassium 4.7 mmol/L (3.4-5.0); Sodium 141 mmol/L (137-145); Total Protein 7.0 g/dL (6.3-8.2); Triglycerides 254 mg/dL (<150)
[2025-01-26 08:22] LABS: Prostate Specific Antigen 0.7 ng/mL (< OR = 4.0)
[2025-01-29 03:07] LABS: Free Testosterone (Direct) 12.0 pg/mL (7.2-24.0)
== END 2025-01-26 07:06 | disposition home or self-care (01) ==
LOC: CHSLAB 07:09
PROVIDERS: PCP Internal Medicine; Visit Provider Internal Medicine
DX: N52.9 Male erectile dysfunction, unspecified (principal); Z13.6 Encounter for screening for cardiovascular disorders; Z12.5 Encounter for screening for malignant neoplasm of prostate
CPT/HCPCS: 36415; 80053; 80061; 84153; 84402; 84403; 85025; G0103